=== PATIENT | female | born 1965 | race Caucasian/White ===

== ENCOUNTER 2021-07-23 00:24 | Emergency (ER) | payer MEDICARE, MEDICAID ==
[~2021-07-23] VITALS: Ht 157.5 cm; Wt 97.5 kg
[2021-07-23] MEDS ORDERED: HYDROCODON-ACE1 EAC8 PO (00:45)
[2021-07-23 00:50] VITALS: BP 134/53
== END 2021-07-23 00:50 | disposition home or self-care (01) ==
LOC: M.ERS 00:24
DX: K02.9 Dental caries, unspecified (principal); Z88.1 Allergy status to other antibiotic agents; Z88.0 Allergy status to penicillin